=== PATIENT | male | born 1975 | race Caucasian/White ===

== ENCOUNTER 2017-04-29 20:30 | Emergency (ER) | payer MEDICAID ==
[~2017-04-29] VITALS: Ht 182.9 cm; Wt 81.6 kg
[2017-04-29 20:44] VITALS: BP 133/72
== END 2017-04-29 22:48 | disposition home or self-care (01) ==
LOC: ER 20:35
DX: S82.52XA Displaced fracture of medial malleolus of left tibia, initial encounter for closed fracture (principal); W23.0XXA Caught, crushed, jammed, or pinched between moving objects, initial encounter; Y93.66 Activity, soccer; Y92.89 Other specified places as the place of occurrence of the external cause; Y99.8 Other external cause status
CPT/HCPCS: 29515; 73610; 99284; A4606; Z7610